=== PATIENT | female | born 1990 | race Caucasian/White ===

== ENCOUNTER 2017-11-02 06:40 | Inpatient (IN) | payer OTHER ==
[2017-11-02] MEDS ORDERED: Lactated Ringer's 1,000 ML IV ONE (06:47)
[2017-11-02 06:53] VITALS: BMI 27.3
[2017-11-02] MEDS ORDERED: Lactated Ringer's 1,000 ML IV SCH (07:00)
[2017-11-02] MEDS ORDERED: Penicillin G 5 Million Unit Vial IVPB ONE (07:08)
--- NOTE | 2017-11-02 07:08 | OBHP ---
Datetime: 11/02/2017 07:00 IP Adm Impression: Term, intrauterine IP Admit Plan: Admit to unit; Observation/Evaluation Admit Comment, IP Provider: 27yo edc 11/09/17 presents w/ c/o srom@ 5am followed by painful ctxs. desire epidural states obhx uncomplicated. pmhx _ pshx: denies medic: pnv nkda shx:denies etoh, drugs or tobacco i: 38.6wks labor p: admit for epidural dr pickard notified Pelvic Type - PN: Adequate Extremities - PN: Normal Abdomen - PN: Normal Lungs - PN: Normal Heart - PN: Normal Neurologic - PN: Normal HEENT - PN: Normal General - PN: Normal FHR - Baseline A Provider: 140 Membranes, Provider: Ruptured Contraction Comments Provider: q3 Comments, ACOG Physical Exam: gbs positive per dr pickard EGA AdmitDate IP: 38.6 Vital Signs Provider: Within Normal Limits IP Chief Complaint: Uterine contractions; Suspected ruptured membranes NICHD Variability Prov Fetus A: Moderate 6-25bpm NICHD Accel Fetus A IP Provider: [id number] FHR Category Provider Fetus A: Category I NICHD Decel Fetus A IP Provider: None Genitourinary Exam: Normal
[2017-11-02 07:20] LABS: BASO % 0.5 % (0.0-2.0); EOS # 0.1 K/uL (0.0-0.7); EOS % 0.9 % (0.0-4.0); HEMOGLOBIN 12.4 g/dL (11.0-16.0); LYMPH # 1.9 K/uL (1.0-4.3); MEAN CELL VOLUME 80.6 fL (81.0-99.0); MEAN CORPUSCULAR HEMOGLOBIN 28.9 pg (27.0-31.0); MEAN CORPUSCULAR HGB CONC 35.9 g/dL (33.0-37.0); MEAN PLATELET VOLUME 10.5 fL (7.2-11.7); MONO # 0.6 K/uL (0.0-0.8); NEUT # 7.2 K/uL (1.8-7.0); NEUT % 73.6 % (50.0-75.0); RBC 4.29 Mil/uL (3.80-5.20); RED CELL DISTRIBUTION WIDTH 14.9 % (11.5-14.5); WHITE BLOOD COUNT 9.9 K/uL (4.8-10.8)
--- NOTE | 2017-11-02 07:20 | OBADHP ---
Datetime: 11/02/2017 07:00 Admit Comment, IP Provider: 27yo edc 11/09/17 presents w/ c/o srom@ 5am followed by painful ctxs. desire epidural states obhx uncomplicated. pmhx _ pshx: denies medic: pnv nkda shx:denies etoh, drugs or tobacco i: 38.6wks labor p: admit for epidural dr pickard notified Pelvic Type - PN: Adequate Extremities - PN: Normal Abdomen - PN: Normal Lungs - PN: Normal Heart - PN: Normal Neurologic - PN: Normal HEENT - PN: Normal General - PN: Normal FHR - Baseline A Provider: 140 Membranes, Provider: Ruptured Contraction Comments Provider: q3 Comments, ACOG Physical Exam: gbs positive per dr pickard Vital Signs Provider: Within Normal Limits IP Chief Complaint: Uterine contractions; Suspected ruptured membranes NICHD Variability Prov Fetus A: Moderate 6-25bpm NICHD Accel Fetus A IP Provider: [id number] FHR Category Provider Fetus A: Category I NICHD Decel Fetus A IP Provider: None Genitourinary Exam: Normal EGA AdmitDate IP: 38.6 IP Adm Impression: Term, intrauterine IP Admit Plan: Admit to unit; Observation/Evaluation
[2017-11-02] MEDS ORDERED: Bupivacaine HCl/FentaNYL Cit 100 ML EPI ONE (07:29)
[2017-11-02] MEDS ORDERED: Oxytocin 20 units in LR 2,000 ML IV ONE (07:30)
[2017-11-02] MEDS ORDERED: Oxytocin 30 UNIT 30 UNITS/500 ML BAG IV ONE (09:43)
[2017-11-02] MEDS ORDERED: Oxytocin 30 UNIT 30 UNITS/500 ML BAG IV SCH (09:45)
--- NOTE | 2017-11-02 12:15 | OBPN ---
Datetime: 11/02/2017 12:02 IP Progress Impression: Normal progression of labor; Non-reassuring heart rate IP Progress Plan: Continue present management Membranes, Provider: Ruptured FHR - Baseline A Provider: 150 Gestation - Est Wks by US: 38.6 IP Progress Note Comment: pt seen and examiend for progrssio of lbor s/p epidura Pt with variable decelration, oxygen, left lateral IVH VSS VE: see aove EFM: 150/mod ijeoma variable decelrs down to 60bpm TOOC: q 2-3 min A/P @ 38.[address] II resuciton dc pitoocn start pusching Vital Signs Provider: Reviewed; Within Normal Limits FHR Category Provider Fetus A: Category II NICHD Variability Prov Fetus A: Moderate 6-25bpm Dilatation, Provider: 10 Effacement, Provider: 100 Station, Provider: -1 NICHD Decel Fetus A IP Provider: Variable Datetime: 11/02/2017 07:00 Contraction Comments Provider: q3 NICHD Accel Fetus A IP Provider: [id number]
[2017-11-02] MEDS ORDERED: Benzocaine/Menthol 20%-0.5% Topical Spray (60 ml) TOP PRN (12:46)
--- NOTE | 2017-11-02 12:49 | OBDS ---
DELIVERY PERSONNEL Delivery Doctor: Lokesh Farias MD Adz Worker: Shoaib Barry RN Anesthesiologist: ANURADHA MATERNAL INFORMATION Delivery Anesthesia: Epidural Medications in Delivery: pitocin 20 Estimated Blood Loss (ml): 100 Placenta Cultured: No Maternal Complications: None Provider Comments: pt was fully dilated and pushing, atruamtic, spontaneous dleivye rof head, tight nuchal cord x 1 loosened. atraumatic, spontanoues delivery of anteiror followed by posteroir sholuder followed by delivery of the body. both oral and nasal pasages of the baby were bulb suctioned. umbil ical cord clamped and cut. baby handed to mother on abodmen with rn assistance. Cord blood adn cord gasese collected and sent x 2. Spontaneous delivery of intact placenta with membranes. Funuds firm. Good hemostasis. intact perineum, no lacerations. live male infant agpars 9,9 weight of 5lbs 12 ounces ebl 100ml no complications pediatrican present for delivery LABOR SUMMARY EDC: 11/10/2017 00:00 No. Babies in Womb: 1 Attempted: No Labor Anesthesia: Epidural LABOR INFORMATION Reason for Induction: Not Applicable Onset of Labor: 11/02/2017 06:00 Group B Beta Strep: Done, Result Unknown Antibiotics # of Doses: 1 Antibiotics Time of Last Dose: 7;12 MEMBRANES Membranes Rupture Method: Spontaneous Rupture of Membranes: 11/02/2017 05:00 Length of Rupture (hrs): 7.60 Amniotic Fluid Color: Clear Amniotic Fluid Amount: Moderate Amniotic Fluid Odor: Normal STAGES OF LABOR Stage 3 hrs: 0 Stage 3 min: 5 Total Time in Labor hrs: 6 Total Time in Labor min: 41 VAGINAL DELIVERY Episiotomy: None Laceration Extension: N/A Laceration Type: None Initial Vag Sponge Count: 10 Final Vag Sponge Count: 10 Sponge Count Correct: Yes BABY A INFORMATION Infant Delivery Date/Time: 11/02/2017 12:36 Method of Delivery: Vaginal Born in Route : No : N/A Forceps: N/A Vacuum Extraction: Successful Shoulder Dystocia : No SHOULDER DYSTOCIA BABY A Infant Delivery Date/Time: 11/02/2017 12:36 PRESENTATION/POSITION BABY A Presentation: Cephalic Cephalic Presentation: Vertex Breech Presentation: N/A PLACENTA INFORMATION BABY A Placenta Delivery Time : 11/02/2017 12:41 Placenta Method of Delivery: Spontaneous Placenta Status: Delivered SCORES BABY A Heart Rate 1 min: >100 bpm Resp Effort 1 min: Good Cry Reflex Irritability 1 min: Cough or Sneeze or Pulls Away Muscle Tone 1 min: Active Motion Color 1 min: Body [place], Extremities Blue Resuscitation Effort 1 min: Tactile Stimulation SCORE 1 MIN: 9 Heart Rate 5 min: >100 bpm Resp Effort 5 min: Good Cry Reflex Irritability 5 min: Cough or Sneeze or Pulls Away Muscle Tone 5 min: Active Motion Color 5 min: Body [place], Extremities Blue SCORE 5 MIN: 9 INFORMATION BABY A Gestational Age at Delivery: 38.6 Gestational Status: Term Infant Outcome : Liveborn Condition : Stable Infant Sex: Male IDENTIFICATION/MEDS BABY A ID Band Number: [id number] ID Band Location: Left Leg; Left Arm Sensor Applied: Yes Sensor Number: [id number] Sensor Location : Cord Clamp WEIGHT/LENGTH BABY A Birthweight (gms): 2605 Infant Weight (lb): 5 Infant Weight (oz): 12 Infant Length Inches: 19.50 Infant Length cms: 49.5 CORD INFORMATION BABY A No. Cord Vessels: 3 Nuchal Cord : Around Neck x1, Tight Cord Blood Taken: Yes Suction: Mouth; Nose ASSESSMENT BABY A Complications: None Physical Findings at Delivery: Within Normal Limits Infant Respirations: Appears Normal Lot Worker/ALS Called : No Care By: christie Transferred To: Remains with Mother
[2017-11-03] MEDS: Oxycodone/Acetaminophen 5/325 mg Tab PO PRN ×2 (01:33→07:02)
--- NOTE | 2017-11-03 04:36 | OBPPN ---
Datetime: 11/03/2017 04:33 PP Pain Prov: Within normal limits PP Nausea Prov: Denies PP Flatus Prov: Yes PP BM Prov: No PP Breasts Prov: Normal PP Heart Prov: Normal PP Lungs Prov: Normal PP Abdomen/Uterus Prov: Normal PP Lochia Prov: Normal PP Vulva/Perineum Prov: Normal PP CVA Tenderness Prov: Normal PP Extremities Prov: Normal PP C/S Incision Prov: Not Applicable PP Progress Prov: Normal PP Impression Prov: Normal progression PP Plan Prov: Continue present management PP Progress Note Prov: pt seen and examiend reports pain tolerable iwht meds. pt ambulating to bathr oom voiidng, tolerating regular ddiet, no heavy bleeding, denies any fever, chills, nause, ovmiting, is breast feeding VSS PE: GEN: NAD AA Ox 3 RESP: CTAB/l CVS: RRR, +S1/S2 ABD: Soft, NT, ND, no ugarding no rebound tenderness nor igidty no uterine tendnerss VE: minimal lochia ,non foul smelling EXT: no calf tendeness, negative evaristo's sign A/P s/p SNVD PPD #1 pain managment regular diet encourage breast feeding and ambulation am cbc Vital Signs Provider PP: Reviewed; Within Normal Limits
[2017-11-03 06:36] LABS: BASO # 0.1 K/uL (0.0-0.2); BASO % 0.5 % (0.0-2.0); EOS # 0.1 K/uL (0.0-0.7); EOS % 0.8 % (0.0-4.0); HEMOGLOBIN 10.7 g/dL (11.0-16.0); LYMPH # 2.4 K/uL (1.0-4.3); LYMPH % 17.2 % (20.0-40.0); MEAN CELL VOLUME 80.7 fL (81.0-99.0); MEAN CORPUSCULAR HEMOGLOBIN 28.6 pg (27.0-31.0); MEAN CORPUSCULAR HGB CONC 35.5 g/dL (33.0-37.0); MEAN PLATELET VOLUME 10.6 fL (7.2-11.7); MONO % 7.4 % (0.0-10.0); NEUT # 10.4 K/uL (1.8-7.0); NEUT % 74.1 % (50.0-75.0); NRBC % 0.2 % (0.0-2.0); RBC 3.75 Mil/uL (3.80-5.20); RED CELL DISTRIBUTION WIDTH 15.1 % (11.5-14.5)
[2017-11-03] MEDS: Multiple Vitamins Tab PO SCH (09:48)
[2017-11-03 16:25] VITALS: O2SAT 98
[2017-11-04] MEDS: Multiple Vitamins Tab PO SCH (09:59)
[2017-11-04 18:11] VITALS: BP 115/73; PULSE 80; RESP 18; TEMP 98
--- NOTE | 2017-11-05 09:03 | OBDCSUM ---
Datetime: 11/04/2017 08:36 Discharge Instructions, Provider: Routine instructions given Discharge Diagnosis, Provider: Term Delivered Contraception discussed, Prov: Yes
--- NOTE | 2017-11-05 09:03 | OBPPN ---
Datetime: 11/05/2017 09:00 PP Pain Prov: Within normal limits PP Nausea Prov: Denies PP Flatus Prov: Yes PP Breasts Prov: Normal PP Heart Prov: Normal PP Lungs Prov: Normal PP Abdomen/Uterus Prov: Normal PP Lochia Prov: Normal PP Vulva/Perineum Prov: Normal PP CVA Tenderness Prov: Normal PP Extremities Prov: Normal PP C/S Incision Prov: Not Applicable PP Progress Prov: Normal PP Impression Prov: Normal progression PP Plan Prov: Continue present management; Discharge PP Progress Note Prov: Delayed entry: pt seen adn examiend 11/04 7:15am pt seen and examiend reports pain tolerable iwht meds. pt ambulating to bathroom voiidng, tolerati ng regular ddiet, no heavy bleeding, denies any fever, chills, nause, ovmiting, is breast feeding VSS PE: GEN: NAD AA Ox 3 RESP: CTAB/l CVS: RRR, +S1/S2 ABD: Soft, NT, ND, no ugarding no rebound tenderness nor igidty no uterine tendnerss funds below leve of umbucis VE: minimal lochia ,non foul smelling EXT: no calf tendeness, negative evaristo's sign A/P s/p SNVD PPD #2 dc home rot 6 week preicgin givne Vital Signs Provider PP: Reviewed; Within Normal Limits
== END 2017-11-04 14:10 | disposition home or self-care (01) | DRG 775 ==
LOC: C.EROB 06:40 → C.4D 06:42 → UNDOADMIN 06:42 → C.4D 06:43 → UNDOADMIN 06:44 → C.4D 06:44 → C.4M 14:38
PROVIDERS: ADMIT Obstetrics & Gynecology; ATTEND Obstetrics & Gynecology
PROC: 10D07Z6 Extraction of Products of Conception, Vacuum, Via Natural or Artificial Opening (ICD-10-PCS; principal; 2017-11-02)
DX: O76 Abnormality in fetal heart rate and rhythm complicating labor and delivery (principal); O69.1XX0 Labor and delivery complicated by cord around neck, with compression, not applicable or unspecified; O99.824 Streptococcus B carrier state complicating childbirth; Z3A.38 38 weeks gestation of pregnancy; Z37.0 Single live birth